=== PATIENT | male | born 1975 | race Caucasian/White ===

== ENCOUNTER 2017-01-27 13:41 | Emergency (ER) | payer MEDICARE, OTHER ==
[~2017-01-27] VITALS: Ht 172.7 cm; Wt 85.0 kg
[~2017-01-27 13:41] MED LIST: BACL10TA PO; BACL20TA PO; DIVA-16 PO; FOLI-49 PO; LOPE2CAP PO; ONDA4TAB35 PO
[2017-01-27 13:44] VITALS: Ht 172.7 cm; Wt 85.0 kg
[2017-01-27] MEDS ORDERED: HC1C30 TOP (14:45)
--- NOTE | 2017-01-27 14:52 | ERD ---
ER Documentation Chief Complaint Date/Time DATE: 01/27/17 TIME: 14:48 Chief Complaint LT FOOT PAIN WITH BRACE HPI This patient is a 41-year-old male with no significant medical history presenting to the emergency department for chronic left foot pain. The patient states his pain is been ongoing for approximately 1 year but has been worsening recently due to the fact that he received a new foot and leg brace. 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 Additionally he complains of a pruritic rash which is intermittent to the left lower extremity which he states is due to the leg brace brace rubbing against his leg. The patient denies any fever, warmth or redness to the area, or other symptoms at this time. The patient has no personal history of diabetes. ROS All systems reviewed and are negative except as per history of present illness. Medications Home Meds Active Scripts Hydrocortisone* Topical (Hydrocortisone* Topical) 1%-28.35 Gm Cream..g., 1 APPLIC TOP BID Y for ITCHING, #1 TUB Prov:TANG ZUÑIGA PA-C 01/27/17 Loperamide Hcl* (Imodium*) 2 Mg Capsule, 2 MG PO .AFTER EA LOOSE BM Y for DIARRHEA, #20 TAB Prov:ROCÍO WHATLEY MD 06/24/15 Ondansetron Hcl* (Zofran* ODT) 4 mg -ODT Tab.disper, 4 MG PO Q6 Y for NAUSEA AND /OR VOMITING, #10 TAB Prov:ROCÍO WHATLEY MD 06/24/15 Reported Medications Divalproex Sodium* (Divalproex Sodium*) 500 Mg Tablet.dr, 1500 MG PO HS, TAB 06/24/15 Baclofen* (Baclofen*) 20 Mg Tablet, 20 MG PO PM, TAB 06/24/15 Baclofen* (Baclofen*) 10 Mg Tablet, 10 MG PO AM, TAB 06/24/15 Folic Acid* (Folic Acid*) 1 Mg Tablet, 1 MG PO DAILY 07/14/12 Allergies Allergies: Coded Allergies: No Known Allergy (Unverified , 06/23/15) PMhx/Soc History of Surgery: Yes (BRAIN TRAUMA 1998) Anesthesia Reaction: No Hx Neurological Disorder: Yes (CVA) Hx Respiratory Disorders: Yes (HX OF VENT.) Hx Cardiac Disorders: No Hx Psychiatric Problems: No Hx Miscellaneous Medical Probl: No Hx Alcohol Use: No Hx Substance Use: No Hx Tobacco Use: No Smoking Status: Never smoker FmHx Noncontributory for chief complaint Physical Exam Vitals Vital Signs Date Time Temp Pulse Resp B/P Pulse Ox O2 Delivery O2 Flow Rate FiO2 01/27/17 13:44 98.0 88 18 129/76 98 Physical Exam Const: The patient is resting comfortably in no acute distress. Head: Atraumatic Eyes: Normal Conjunctiva ENT: Normal External Ears, Nose and Mouth. Neck: Full range of motion..~ No meningismus. Resp: Clear to auscultation bilaterally Cardio: Regular rate and rhythm, no murmurs Abd: Soft, non tender, non distended. Normal bowel sounds Skin: There is a mild macular papular rash to the left lower extremity with no significant warmth or erythema. There are no signs of cellulitis. Back: No midline or flank tenderness Ext: The patient has a mobilization brace in place to the left lower extremity. Neur: Awake and alert Psych: Normal Mood and Affect Procedures/MDM 41-year-old male presents secondary to complaints of left foot pain after receiving a new brace. On physical examination the patient's vitals are within normal limits. There is a slight maculopapular rash to the left lower extremity but no signs of cellulitis. There is no warmth, redness, or tenderness to palpation. There is 2+ pedal pulses in the left lower extremity. I recommended the patient use a insert to relieve plantar pain. The patient agrees with and understands this information given. He states he will buy inserts to relieve the pain. The patient will also be prescribed hydrocodone cream to use for his urticarial rash. He was advised to not use the cream for more than 1 week to prevent skin decomposition. The patient understands the discharge plan of diagnosis and he agrees. At this point I doubt any cellulitis , fracture, septicemia, or other emergent conditions. The patient is hemodynamically stable for discharge and outpatient management. The patient was advised to return to the department immediately for any new or worsening symptoms. He is to follow-up with his primary care physician as soon as possible. Departure Diagnosis: Primary Impression: Foot pain Laterality: left Qualified Code: M79.672 - Left foot pain Condition: Fair Patient Instructions: Foot and Ankle Exercises: Ankle Circles, Contusion, Foot (Child) [facility] Usted se alvarenga hecho un examen mdico de control que le indica que no est en linda condicin que requiera tratamiento urgente en el Departamento de Emergencia. Un estudio ms profundo y el tratamiento de heredia condicin pueden esperar sin ningn riesgo hasta que usted sea atendida/o en el consultorio de heredia mdico o linda cl rylie. Es responsabilidad suya arreglar linda rebecca para el seguimiento del winnie. MANEJO DE CONDICIONES NO URGENTES EN EL FUTURO 1) Si usted tiene un mdico de atencin primaria: Usted debera llamar a heredia mdico de atencin primaria antes de venir al departamento de emergencia. Despus de las horas de consultorio, heredia doctor o heredia asociado/a est disponible por telfono. El mdico o enfermero de kirti en el servicio telefnico puede asesorarle por yayo medio para atender el problema, o winnie contrario se puede programar linda rebecca. 2) Si usted no tiene un mdico de atencin primaria: Llame al mdico o clnica de referencia que aparece abajo javier las horas de consultorio para hacer linda rebecca para que le vean. CLINICAS: [facility] [phone] [facility] [phone] [facility] [phone] [address] [facility]. [facility] [phone] [facility] [phone] [facility]. [phone] [address] Additional Instructions: Buy gel shoe inserts. Follow-up with your primary care physician within 1 week. Return to the emergency department immediately should you have any new or worsening symptoms, uncontrolled fevers, or other unexplained symptoms. Take all medications as directed. TANG ZUÑIGA PA-C Jan 27, 2017 14:52
== END 2017-01-27 14:41 | disposition home or self-care (01) ==
LOC: FTE 13:41
DX: M79.672 Pain in left foot (principal)
CPT/HCPCS: 99283